=== PATIENT | female | born 1935 | race American Indian/Alaskan Native ===

== ENCOUNTER 2017-09-12 13:53 | Inpatient (IN) | payer MEDICARE ==
[2017-09-12 14:10] VITALS: BMI 28.3
[2017-09-12] MEDS ORDERED: Magnesium Sulfate 2 GM in Sodium Chloride 0.9% 100 ML IVPB ONE (14:11)
[2017-09-12] MEDS ORDERED: Albuterol-Ipratrop 3 mg / 0.5 (3 ml) UD IH STA (14:11)
[2017-09-12] MEDS ORDERED: Albuterol 0.083% Inhal Sol (2.5 mg/3 mL) UD INH STA (14:11)
--- NOTE | 2017-09-12 14:12 | ED PDOC ---
Arrival/HPI - General Time Seen by Provider: 09/12/17 14:01 Historian: Patient - History of Present Illness Narrative History of Present Illness (Text): 09/12/17 14:09 A 82 year old female, whose past medical history includes asthma, presents to the emergency department complaining of progressively worsening shortness of breath since yesterday. Patient notes associated productive cough with white- yellow sputum. She report using her inhaler at home, with no relief. Patient states her symptoms feel similar to prior asthma exacerbations. Patient denies any fever, chills, nausea, vomiting, abdominal pain, chest pain or any other complaints. Time/Duration: Other (yesterday) Symptom Course: Worsening Context: Home Past Medical History - Provider Review Nursing Documentation Reviewed: Yes Family/Social History - Physician Review Nursing Documentation Reviewed: Yes Family/Social History: No Known Family HX Allergies/Home Meds Allergies/Adverse Reactions: Allergies No Known Allergies Allergy (Verified 09/12/17 14:10) Home Medications: Home Meds Medication Instructions Recorded Confirmed Albuterol HFA [Ventolin HFA 90 0.09 mg IH PRN PRN 09/12/17 09/12/17 mcg/actuation (8 g)] Aspirin [Ecotrin] 81 mg PO DAILY 09/12/17 09/12/17 Pantoprazole [Protonix] 40 mg PO DAILY 09/12/17 09/12/17 amLODIPine [Norvasc] 10 mg PO DAILY 09/12/17 09/12/17 Review of Systems - Physician Review All systems were reviewed & negative as marked: Yes - Review of Systems Constitutional: absent: Fevers, Night Sweats Respiratory: SOB, Cough, Sputum Cardiovascular: absent: Chest Pain Gastrointestinal: absent: Abdominal Pain, Nausea, Vomiting Physical Exam Vital Signs Reviewed: Yes Vital Signs Temp Pulse Resp BP Pulse Ox 09/12/17 16:50 108 H 18 125/56 L 99 09/12/17 14:36 104 H 22 110/66 96 09/12/17 14:16 22 09/12/17 14:13 98.7 F 102 H 22 96/55 L 93 L Temperature: Afebrile Blood Pressure: Hypotensive Pulse: Tachycardic Respiratory Rate: Normal Appearance: Positive for: Well-Appearing, Non-Toxic, Comfortable Pain Distress: None Mental Status: Positive for: Alert and Oriented X 3 - Systems Exam Head: Present: Atraumatic, Normocephalic Pupils: Present: PERRL Extroacular Muscles: Present: EOMI Conjunctiva: Present: Normal Mouth: Present: Moist Mucous Membranes Neck: Present: Normal Range of Motion. No: JVD Respiratory/Chest: Present: Good Air Exchange, Wheezes (diffuse wheezing bilaterally). No: Respiratory Distress, Accessory Muscle Use Cardiovascular: Present: Regular Rate and Rhythm, Normal S1, S2. No: Murmurs Abdomen: Present: Normal Bowel Sounds. No: Tenderness, Distention, Peritoneal Signs Back: Present: Normal Inspection Upper Extremity: Present: Normal Inspection. No: Cyanosis, Edema Lower Extremity: Present: Normal Inspection. No: Edema Neurological: Present: GCS=15, CN II-XII Intact, Speech Normal Skin: Present: Warm, Dry, Normal Color. No: Rashes Psychiatric: Present: Alert, Oriented x 3, Normal Insight, Normal Concentration Medical Decision Making ED Course and Treatment: 09/12/17 14:09 Impression: A 82 year old female with shortness of breath and productive cough. Hx of asthma. Plan: -- Chest xray -- EKG -- Labs -- Albuterol, Duoneb, Magnesium sulfate and Solumedrol -- Reassess and disposition Progress Notes: EKG shows 104 at sinus tachycardia BPM with LAFB. Interpreted by me. 09/12/17 16:03 Patient given antibiotics. Spoke to Dr. Martinez, whom states patient to be admitted to med-surg floor. Diagnosis: Asthma vs. Pneumonia. - Lab Interpretations Lab Results: 09/12/17 14:39 09/12/17 14:39 Lab Results 09/12/17 15:20: PT 11.2, INR 0.98 09/12/17 14:39: Sodium 145, Potassium 4.1, Chloride 106, Carbon Dioxide 26, Anion Gap 17, BUN 11, Creatinine 0.7, Est GFR ( Amer) > 60, Est GFR (Non- Af Amer) > 60, Random Glucose 124 H, Calcium 10.1, Total Bilirubin 0.6, AST 32, ALT 29, Alkaline Phosphatase 73, Lactate Dehydrogenase 611, Total Creatine Kinase 77, Troponin I < 0.01, NT-Pro-B Natriuret Pep 171, Total Protein 7.9, Albumin 4.4, Globulin 3.5, Albumin/Globulin Ratio 1.3 09/12/17 14:39: WBC 10.1, RBC 4.11, Hgb 12.8, Hct 39.0, MCV 94.9, MCH 31.1, MCHC 32.8, RDW 13.1, Plt Count 282, MPV 9.9, Gran % 72.5 H, Lymph % (Auto) 15.4 L, [place] % (Auto) 8.5 H, Eos % (Auto) 3.4, Baso % (Auto) 0.2, Gran # 7.29 H, Lymph # (Auto) 1.6, [place] # (Auto) 0.9 H, Eos # (Auto) 0.3, Baso # (Auto) 0.02 I have reviewed the lab results: Yes - RAD Interpretation Radiology Orders: 09/12/17 14:12 CXR [CHEST PORTABLE] [RAD] Stat - Medication Orders Current Medication Orders: Discontinued Medications Acetaminophen (Tylenol 325mg Tab) 650 mg PO Q6H PRN PRN Reason: Fever >100.4 F Albuterol Sulfate (Albuterol 0.083% Inhal Bev (2.5 Mg/3 Ml) Ud) 5 mg INH STAT STA Stop: 09/12/17 14:12 Last Admin: 09/12/17 14:44 Dose: 5 mg Albuterol Sulfate (Albuterol 0.083% Inhal Bev (2.5 Mg/3 Ml) Ud) 2.5 mg IH Q2H PRN PRN Reason: Shortness of Breath Albuterol/Ipratropium (Duoneb 3 Mg/0.5 Mg (3 Ml) Ud) 3 ml IH STAT STA Stop: 09/12/17 14:12 Last Admin: 09/12/17 14:15 Dose: 3 ml Albuterol/Ipratropium (Duoneb 3 Mg/0.5 Mg (3 Ml) Ud) 3 ml IH [id number] ANCA Last Admin: 09/13/17 13:19 Dose: Amlodipine Besylate (Norvasc) 10 mg PO DAILY ON LICENSE OF [facility] Last Admin: 09/13/17 09:54 Dose: 10 mg MAR Blood Pressure Document 09/13/17 09:54 SES (Rec: 09/13/17 09:59 SES [id number]) Blood Pressure Blood Pressure (100/60-150/90) 128/70 Aspirin (Ecotrin) 81 mg PO DAILY ANCA Last Admin: 09/13/17 09:54 Dose: 81 mg Azithromycin (Zithromax) 500 mg PO DAILY ANCA PRN Reason: Protocol Last Admin: 09/13/17 09:54 Dose: 500 mg Famotidine (Pepcid) 20 mg PO BID ANCA Last Admin: 09/13/17 09:54 Dose: 20 mg Magnesium Sulfate 2 gm/ Sodium (Chloride) 104 mls @ 102 mls/hr IVPB ONCE ONE Stop: 09/12/17 15:12 Last Admin: 09/12/17 14:43 Dose: 102 mls/hr eMAR Start Stop Document 09/12/17 14:43 CATHY (Rec: 09/12/17 14:43 CATHY [id number]) Intravenous Solution Start Date 09/12/17 Start Time 14:43 End Date 09/12/17 End time 13:43 Total Infusion Time -60 Ceftriaxone Sodium (Rocephin 1 Gram Ivpb) 1 gm in 100 mls @ 200 mls/hr IVPB STAT STA PRN Reason: Protocol Stop: 09/12/17 15:33 Last Admin: 09/12/17 15:42 Dose: 200 mls/hr eMAR Start Stop Document 09/12/17 15:42 MS (Rec: 09/12/17 15:46 MS [id number]) Intravenous Solution Start Date 09/12/17 Start Time 15:46 End Date 09/12/17 End time 16:16 Total Infusion Time 30 Azithromycin (Zithromax 500mg In Ns) 500 mg in 250 mls @ 167 mls/hr IVPB STAT STA PRN Reason: Protocol Stop: 09/12/17 16:33 Last Admin: 09/12/17 16:43 Dose: 167 mls/hr eMAR Start Stop Document 09/12/17 16:43 MS (Rec: 09/12/17 16:46 MS [id number]) Intravenous Solution Start Date 09/12/17 Start Time 16:46 End Date 09/12/17 End time 18:16 Total Infusion Time 90 Methylprednisolone (Solu-Medrol) 125 mg IVP STAT STA Stop: 09/12/17 14:12 Last Admin: 09/12/17 14:43 Dose: 125 mg IVP Administration Document 09/12/17 14:43 CATHY (Rec: 09/12/17 14:43 CATHY [id number]) Charges for Administration # of IVP Administrations 1 Methylprednisolone (Solu-Medrol) 40 mg IVP Q12 ANCA Last Admin: 09/13/17 11:23 Dose: Oxycodone/Acetaminophen (Percocet 5/325 Mg Tab) 1 tab PO Q6H PRN PRN Reason: Pain, severe (8-10) Stop: 09/15/17 16:58 - Scribe Statement The provider has reviewed the documentation as recorded by the Ashleeibcolby Lentz Provider Scribe Attestation: All medical record entries made by the Scribe were at my direction and personally dictated by me. I have reviewed the chart and agree that the record accurately reflects my personal performance of the history, physical exam, medical decision making, and the department course for this patient. I have also personally directed, reviewed, and agree with the discharge instructions and disposition. Disposition/Present on Arrival - Present on Arrival Any Indicators Present on Arrival: No History of DVT/PE: No History of Uncontrolled Diabetes: No Urinary Catheter: No History of Decub. Ulcer: No History Surgical Site Infection Following: None - Disposition Have Diagnosis and Disposition been Completed?: Yes Diagnosis: Exacerbation of asthma, Community acquired pneumonia Disposition: HOME/ ROUTINE Disposition Time: 16:05 Patient Plan: Admission Condition: GOOD
[2017-09-12 14:55] LABS: BASO # 0.02 K/mm3 (0.0-2.0); BASO % 0.2 % (0.0-3.0); EOS # 0.3 (0.0-0.7); EOS % 3.4 % (1.5-5.0); GRAN # 7.29 (1.4-6.5); GRAN % 72.5 % (50.0-68.0); HEMOGLOBIN 12.8 g/dL (12.0-16.0); LYMPH # 1.6 (1.2-3.4); LYMPH % 15.4 % (22.0-35.0); MEAN CELL VOLUME 94.9 fl (80.0-105.0); MEAN CORPUSCULAR HEMOGLOBIN 31.1 pg (25.0-35.0); MEAN CORPUSCULAR HGB CONC 32.8 g/dl (31.0-37.0); MEAN PLATELET VOLUME 9.9 fl (7.0-11.0); MONO # 0.9 (0.1-0.6); MONO % 8.5 % (1.0-6.0); RBC 4.11 10^6/uL (3.5-6.1); RED CELL DISTRIBUTION WIDTH 13.1 % (11.5-14.5); WHITE BLOOD COUNT 10.1 10^3/ul (4.5-11.0)
[2017-09-12] MEDS ORDERED: Azithromycin 500MG/NS 250ml 500 MG/250 ML BAG IVPB STA (15:04)
[2017-09-12] MEDS ORDERED: cefTRIAXone 1 gm 1 GM/100 ML BAG IVPB STA (15:04)
[2017-09-12 15:06] LABS: ALB/GLOB RATIO 1.3 (1.1-1.8); ALBUMIN 4.4 g/dL (3.0-4.8); ALT/SGPT 29 U/L (7-56); AST/SGOT 32 U/L (14-36); BLOOD UREA NITROGEN 11 mg/dL (7-21); CALCIUM 10.1 mg/dL (8.4-10.5); GFR AFRICAN-AMERICAN > 60; GFR NON-AFRICAN AMERICAN > 60
--- NOTE | 2017-09-12 15:06 | RAD ---
HISTORY: Wheezing COMPARISON: No prior. FINDINGS: LUNGS: The lungs are well inflated and clear. PLEURA: No significant pleural effusion identified, no pneumothorax apparent. CARDIOVASCULAR: The heart is normal in size. There is asymmetric prominence the right hilum. OSSEOUS STRUCTURES: No significant abnormalities. VISUALIZED UPPER ABDOMEN: Normal. OTHER FINDINGS: None. IMPRESSION: No active pulmonary disease. Asymmetric prominence of the right hilum could be vascular however CT scan with intravenous contrast on a nonemergent basis is recommended for definitive evaluation.
[2017-09-12 15:18] LABS: B-TYPE NATRIURETIC PEPTIDE 171 pg/mL (0-450); TROPONIN I < 0.01 ng/mL
[2017-09-12 15:38] LABS: INR 0.98 (0.93-1.08); PROTHROMBIN TIME 11.2 SECONDS (9.4-12.5)
[2017-09-12] MEDS ORDERED: Albuterol 0.083% Inhal Sol (2.5 mg/3 mL) UD IH PRN (16:28)
[2017-09-12] MEDS ORDERED: Sodium Chloride 0.9% 1,000 ML IV SCH (16:30)
--- NOTE | 2017-09-12 16:32 | CP.PCM.HP ---
<Edna Burr - Last Filed: 09/12/17 17:13> History of Present Illness - History of Present Illness History of Present Illness: This is an 82yo female with past medical history of HTN, OA (on chronic opiates) , Asthma and GERD who came to ED for shortness of breath. Patient reports having a cough for 1 week with clear sputum. She started to feel short of breath. She was using her Ventolin inhaler without any relief. She denies fever/ chills, chest pain, weakness, recent travel, sick contacts, allergies (to pets/ dust or seasonal) that exacerbates her asthma. She has never been intubated before and she never wakes up at night feeling short of breath. She states she can walk a long time without getting short of breath. She uses her Ventolin once a week. According to her pharmacy, she picked up a medrol dose pack on 08/28. Patient says her PMD, Dr. Mayorga, gives it to her when she feels short of breath. She has never seen a Pulm doctor. She has only been hospitalized for her 2 surgeries which were >20yrs ago. PMH: HTN, OA, Asthma, GERD PSH: Appendectomy, Hysterectomy Home meds: (Confirmed with [facility] on [address]) ASA 81mg, Norvasc 10mg, Protonix 40mg daily, [place] 7.5/325mg q6h prn pain, Ventolin inhaler, Duoneb as needed Allergies: NKDA Social history: Denies EtOH, illicit drug or any tobacco use. Lives alone, but in 2 family home with family near by. Takes care of herself, but does not drive. PMD: Dr. Mayorga Present on Admission - Present on Admission Any Indicators Present on Admission: No Review of Systems - Review of Systems All systems: reviewed and no additional remarkable complaints except Review of Systems: As per HPI Past Patient History - Infectious Disease Hx of Infectious Diseases: None - Past Social History Smoking Status: Never Smoked Alcohol: None Drugs: Denies Home Situation {Lives}: Alone - CARDIAC Hx Hypertension: Yes - PULMONARY Hx Asthma: Yes - NEUROLOGICAL Hx Neurological Disorder: No - RENAL Hx Chronic Kidney Disease: No - ENDOCRINE/METABOLIC Hx Endocrine Disorders: No - GENITOURINARY/GYNECOLOGICAL Hx Genitourinary Disorders: No - PSYCHIATRIC Hx Psychophysiologic Disorder: No Hx Substance Use: No - SURGICAL HISTORY Hx Surgeries: No - ANESTHESIA Hx Anesthesia: No Meds Home Medications: Home Medication List Medication Instructions Recorded Confirmed Type Azithromycin 1 gm PO DAILY 5 Days packet 09/13/17 Rx Methylprednisolone [Medrol Dose See Taper PO DAILY #21 mg 09/13/17 Rx Pack (21 tabs)] Allergies/Adverse Reactions: Allergies Allergy/AdvReac Type Severity Reaction Status Date / Time No Known Allergies Allergy Verified 09/12/17 14:10 Physical Exam - Constitutional Appears: No Acute Distress - Head Exam Head Exam: ATRAUMATIC, NORMAL INSPECTION, NORMOCEPHALIC - Eye Exam Eye Exam: EOMI, Normal appearance, PERRL Pupil Exam: NORMAL ACCOMODATION - ENT Exam ENT Exam: Mucous Membranes Moist - Respiratory Exam Respiratory Exam: Wheezes (diffuse), NORMAL BREATHING PATTERN. absent: Rales, Rhonchi - Cardiovascular Exam Cardiovascular Exam: REGULAR RHYTHM, +S1, +S2. absent: Tachycardia, Gallop, Rubs, Systolic Murmur - GI/Abdominal Exam GI & Abdominal Exam: Normal Bowel Sounds, Soft. absent: Mass, Rebound, Rigid, Tenderness - Extremities Exam Extremities exam: Positive for: normal inspection. Negative for: calf tenderness, pedal edema - Neurological Exam Neurological exam: Alert, CN II-XII Intact, Oriented x3 - Psychiatric Exam Psychiatric exam: Normal Affect, Normal Mood - Skin Skin Exam: Dry, Intact, Warm Results - Vital Signs Recent Vital Signs: Last Vital Signs Temp 98.7 F 09/12/17 14:13 Pulse 104 H 09/12/17 14:36 Resp 22 09/12/17 14:36 BP 110/66 09/12/17 14:36 Pulse Ox 96 09/12/17 14:36 - Labs Result Diagrams: 09/12/17 14:39 09/12/17 14:39 Labs: Laboratory Results - last 24 hr 09/12/17 09/12/17 09/12/17 14:39 14:39 15:20 WBC 10.1 RBC 4.11 Hgb 12.8 Hct 39.0 MCV 94.9 MCH 31.1 MCHC 32.8 RDW 13.1 Plt Count 282 MPV 9.9 Gran % 72.5 H Lymph % (Auto) 15.4 L [place] % (Auto) 8.5 H Eos % (Auto) 3.4 Baso % (Auto) 0.2 Gran # 7.29 H Lymph # (Auto) 1.6 [place] # (Auto) 0.9 H Eos # (Auto) 0.3 Baso # (Auto) 0.02 PT 11.2 INR 0.98 Sodium 145 Potassium 4.1 Chloride 106 Carbon Dioxide 26 Anion Gap 17 BUN 11 Creatinine 0.7 Est GFR ( Amer) > 60 Est GFR (Non-Af Amer) > 60 Random Glucose 124 H Calcium 10.1 Total Bilirubin 0.6 AST 32 ALT 29 Alkaline Phosphatase 73 Lactate Dehydrogenase 611 Total Creatine Kinase 77 Troponin I < 0.01 NT-Pro-B Natriuret Pep 171 Total Protein 7.9 Albumin 4.4 Globulin 3.5 Albumin/Globulin Ratio 1.3 Assessment & Plan - Assessment and Plan (Free Text) Assessment: This is an 82yo female with past medical history of HTN, OA (on chronic opiates) , Asthma and GERD admitted for asthma exacerbation. Plan: 1. Shortness of breath - Most likely secondary to asthma exacerbation - Pneumonia is unlikely- afebrile, no leukocytosis, CXR negative. - Solumedrol 40q12 - Duoneb mk and prn - Tylenol prn fever - Zithromax 2. Hx of HTN - Continue home ASA and Norvasc 3. Hx of Arthritis - On chronic opiates at home - Percocet 5/325 prn severe pain GI ppx: Pepcid DVT ppx: SCDs Dispo: Patient is independent in all ADLs. If wheezing improves can possibly be d/c tomorrow with Z-pack and Prednisone taper. Patient educated on the use of chronic steroids and the risk of osteoporosis. Consider changed home prescription of protonix to pepcid tp decrease risk of osteoporosisVirginia Burr PGY2 - Date & Time Date: 09/12/17 Time: 17:25 <Misty Wise - Last Filed: 09/13/17 17:30> Results - Vital Signs Recent Vital Signs: Last Vital Signs Temp 97.9 F 09/13/17 08:06 Pulse 91 H 09/13/17 08:06 Resp 18 09/13/17 08:06 BP 128/70 09/13/17 09:54 Pulse Ox 98 09/13/17 08:06 - Labs Result Diagrams: 09/13/17 06:40 09/13/17 06:40 Labs: Laboratory Results - last 24 hr 09/13/17 09/13/17 06:40 06:40 WBC 7.5 D RBC 4.06 Hgb 12.2 Hct 38.3 MCV 94.3 MCH 30.0 MCHC 31.9 RDW 13.1 Plt Count 309 MPV 9.8 Gran % 83.8 H Lymph % (Auto) 11.5 L [place] % (Auto) 4.7 Eos % (Auto) 0.0 L Baso % (Auto) 0.0 Gran # 6.28 Lymph # (Auto) 0.9 L [place] # (Auto) 0.4 Eos # (Auto) 0.0 Baso # (Auto) 0.00 Sodium 146 Potassium 4.5 Chloride 107 Carbon Dioxide 29 Anion Gap 14 BUN 11 Creatinine 0.7 Est GFR ( Amer) > 60 Est GFR (Non-Af Amer) > 60 Random Glucose 134 H Calcium 10.3 Total Bilirubin 0.4 AST 25 ALT 28 Alkaline Phosphatase 69 Total Protein 7.5 Albumin 4.1 Globulin 3.4 Albumin/Globulin Ratio 1.2 Attending/Attestation - Attestation I have personally seen and examined this patient.: Yes I have fully participated in the care of the patient.: Yes I have reviewed all pertinent clinical information: Yes Notes (Text): I have seen and examined the patient at bedside. Agree with the above note with the following additions/ exceptions: Briefly this is 82 year old female with history of HTN, OA, asthma and GERD who was admitted for asthma exacerbation. Start IV solumedrol and duonebs. CXR negative. Patient was able to do ADL's and IADL's on her own without assistance. Upon discharge patient will follow up with Dr Mayorga. Dr Misty Wise
[2017-09-12] MEDS ORDERED: Oxycodone/Acetaminophen 5/325 mg Tab PO PRN (16:57)
[2017-09-12] MEDS: MethylPREDNISolone 40 mg Vial IVP SCH (21:46)
[2017-09-12] MEDS: Albuterol-Ipratrop 3 mg / 0.5 (3 ml) UD IH SCH (22:24)
[2017-09-13 07:01] LABS: GRAN # 6.28 (1.4-6.5); GRAN % 83.8 % (50.0-68.0); HEMOGLOBIN 12.2 g/dL (12.0-16.0); LYMPH # 0.9 (1.2-3.4); LYMPH % 11.5 % (22.0-35.0); MEAN CELL VOLUME 94.3 fl (80.0-105.0); MEAN CORPUSCULAR HGB CONC 31.9 g/dl (31.0-37.0); MEAN PLATELET VOLUME 9.8 fl (7.0-11.0); MONO # 0.4 (0.1-0.6); MONO % 4.7 % (1.0-6.0); RBC 4.06 10^6/uL (3.5-6.1); RED CELL DISTRIBUTION WIDTH 13.1 % (11.5-14.5); WHITE BLOOD COUNT 7.5 10^3/ul (4.5-11.0)
[2017-09-13 07:18] LABS: ALB/GLOB RATIO 1.2 (1.1-1.8); ALBUMIN 4.1 g/dL (3.0-4.8); ALT/SGPT 28 U/L (7-56); AST/SGOT 25 U/L (14-36); BLOOD UREA NITROGEN 11 mg/dL (7-21); CALCIUM 10.3 mg/dL (8.4-10.5); GFR AFRICAN-AMERICAN > 60; GFR NON-AFRICAN AMERICAN > 60
--- NOTE | 2017-09-13 07:32 | CARD ---
APPROVED REPORT EKG Measurement Heart [id number] <Conclusion> Sinus tachycardia with fusion complexes Left anterior fascicular block Abnormal ECG
[2017-09-13] MEDS: Albuterol-Ipratrop 3 mg / 0.5 (3 ml) UD IH SCH ×2 (07:43→13:19)
[2017-09-13 08:07] VITALS: PULSE 91; RESP 18; TEMP 97.9; O2SAT 98
[2017-09-13] MEDS: MethylPREDNISolone 40 mg Vial IVP SCH ×2 (09:54→11:23)
[2017-09-13 09:59] VITALS: BP 128/70
--- NOTE | 2017-09-13 12:27 | CP.PCM.DIS ---
<Bobo Rosales - Last Filed: 09/13/17 12:36> Provider - Provider Date of Admission: 09/12/17 16:05 Attending physician: Misty Wise MD Primary care physician: Rafat Mayorga MD Time Spent in preparation of Discharge (in minutes): 45 Diagnosis - Discharge Diagnosis (1) Exacerbation of asthma Status: Resolved Priority: Medium (2) Hypertension Status: Chronic Priority: Medium (3) Osteoarthritis Status: Chronic Priority: Medium Hospital Course - Lab Results Lab Results: Most Recent Lab Values WBC 7.5 10^3/ul (4.5-11.0) D 09/13/17 06:40 RBC 4.06 10^6/uL (3.5-6.1) 09/13/17 06:40 Hgb 12.2 g/dL (12.0-16.0) 09/13/17 06:40 Hct 38.3 % (36.0-48.0) 09/13/17 06:40 MCV 94.3 fl (80.0-105.0) 09/13/17 06:40 MCH 30.0 pg (25.0-35.0) 09/13/17 06:40 MCHC 31.9 g/dl (31.0-37.0) 09/13/17 06:40 RDW 13.1 % (11.5-14.5) 09/13/17 06:40 Plt Count 309 10^3/uL (120.0-450.0) 09/13/17 06:40 MPV 9.8 fl (7.0-11.0) 09/13/17 06:40 Gran % 83.8 % (50.0-68.0) H 09/13/17 06:40 Lymph % (Auto) 11.5 % (22.0-35.0) L 09/13/17 06:40 [place] % (Auto) 4.7 % (1.0-6.0) 09/13/17 06:40 Eos % (Auto) 0.0 % (1.5-5.0) L 09/13/17 06:40 Baso % (Auto) 0.0 % (0.0-3.0) 09/13/17 06:40 Gran # 6.28 (1.4-6.5) 09/13/17 06:40 Lymph # (Auto) 0.9 (1.2-3.4) L 09/13/17 06:40 [place] # (Auto) 0.4 (0.1-0.6) 09/13/17 06:40 Eos # (Auto) 0.0 (0.0-0.7) 09/13/17 06:40 Baso # (Auto) 0.00 K/mm3 (0.0-2.0) 09/13/17 06:40 PT 11.2 SECONDS (9.4-12.5) 09/12/17 15:20 INR 0.98 (0.93-1.08) 09/12/17 15:20 Sodium 146 mmol/L (132-148) 09/13/17 06:40 Potassium 4.5 mmol/L (3.6-5.0) 09/13/17 06:40 Chloride 107 mmol/L (98-107) 09/13/17 06:40 Carbon Dioxide 29 mmol/L (21-33) 09/13/17 06:40 Anion Gap 14 (10-20) 09/13/17 06:40 BUN 11 mg/dL (7-21) 09/13/17 06:40 Creatinine 0.7 mg/dl (0.7-1.2) 09/13/17 06:40 Est GFR ( Amer) > 60 09/13/17 06:40 Est GFR (Non-Af Amer) > 60 09/13/17 06:40 Random Glucose 134 mg/dL (70-110) H 09/13/17 06:40 Calcium 10.3 mg/dL (8.4-10.5) 09/13/17 06:40 Total Bilirubin 0.4 mg/dL (0.2-1.3) 09/13/17 06:40 AST 25 U/L (14-36) 09/13/17 06:40 ALT 28 U/L (7-56) 09/13/17 06:40 Alkaline Phosphatase 69 U/L (38-126) 09/13/17 06:40 Lactate Dehydrogenase 611 U/L (333-699) 09/12/17 14:39 Total Creatine Kinase 77 U/L (35-230) 09/12/17 14:39 Troponin I < 0.01 ng/mL 09/12/17 14:39 NT-Pro-B Natriuret Pep 171 pg/mL (0-450) 09/12/17 14:39 Total Protein 7.5 g/dL (5.8-8.3) 09/13/17 06:40 Albumin 4.1 g/dL (3.0-4.8) 09/13/17 06:40 Globulin 3.4 gm/dL 09/13/17 06:40 Albumin/Globulin Ratio 1.2 (1.1-1.8) 09/13/17 06:40 - Hospital Course Hospital Course: Patient is a 82 year old female with past medical history of HTN, OA (on chronic opiates), Asthma and GERD who was admitted for evaluation and treatment of shortness of breath. With the use of physical examinations, lab work, and imaging the patient was diagnosed with and treated for asthma exacerbation along with the patients chronic medical conditions. During their hospital stay the patient underwent a chest xray which was reviewed, appreciated, and utilized in the management of the patients clinical course. CXR showed no active disease. Patient was treated with IV steriods, duonebs, antihypertensive medications amongst other empiric/therapeutic medications. At this time the patient is medically stable for discharge. Patient understands and appreciates discharge plan. Patient instructed to follow up with primary care physicians and referrals within three to five days from discharge. Furthermore, the patient is instructed to take medications as prescribed and to return to emergency room for evaluation of intractable headache, fever, chills, dizziness , chest pain, shortness of breath, abdominal pain, nausea, vomiting, diarrhea, constipation, and urinary symptoms. This is a brief summary of the patients hospital course. Please see patient chart for full details. Discharge Exam - Head Exam Head Exam: ATRAUMATIC, NORMAL INSPECTION, NORMOCEPHALIC - Additional Findings Additional findings: - Constitutional Appears: No Acute Distress - Head Exam Head Exam: ATRAUMATIC, NORMAL INSPECTION, NORMOCEPHALIC - Eye Exam Eye Exam: EOMI, Normal appearance, PERRL - ENT Exam ENT Exam: Mucous Membranes Moist - Respiratory Exam Respiratory Exam: NORMAL BREATHING PATTERN. absent: Rales, Rhonchi - Cardiovascular Exam Cardiovascular Exam: REGULAR RHYTHM, +S1, +S2. absent: Tachycardia, Gallop, Rubs, Systolic Murmur - GI/Abdominal Exam GI & Abdominal Exam: Normal Bowel Sounds, Soft. absent: Mass, Rebound, Rigid, Tenderness - Extremities Exam Extremities exam: Positive for: normal inspection. Negative for: calf tenderness, pedal edema - Neurological Exam Neurological exam: Alert, CN II-XII Intact, Oriented x3 - Psychiatric Exam Psychiatric exam: Normal Affect, Normal Mood - Skin Skin Exam: Dry, Intact, Warm Discharge Plan - Discharge Medications Prescriptions: Azithromycin 1 gm PO DAILY 5 Days packet Methylprednisolone [Medrol Dose Pack (21 tabs)] See Taper PO DAILY #21 mg - Follow Up Plan Condition: GOOD Disposition: HOME/ ROUTINE Patient education suggested?: Yes Instructions: Asthma in Adults, Heart Healthy Diet, High Blood Pressure (DC), Preventing Falls Additional Instructions: Patient Instructions: Take medications as prescribed. Follow up with PMD and referrals within three to five days from discharge. Recommend noncontrast CT of Chest on outpatient basis. Return to the emergency room for evaluation of intractable headache, fever, chills, dizziness, chest pain, shortness of breath, abdominal pain, nausea, vomiting, diarrhea, constipation, and urinary symptoms. Referrals: Rafat Mayorga MD [Primary Care Provider] - <Misty Wise - Last Filed: 09/13/17 17:35> Provider - Provider Date of Admission: 09/12/17 16:05 Attending physician: Misty Wise MD Primary care physician: Rafat Mayorga MD Hospital Course - Lab Results Lab Results: Most Recent Lab Values WBC 7.5 10^3/ul (4.5-11.0) D 09/13/17 06:40 RBC 4.06 10^6/uL (3.5-6.1) 09/13/17 06:40 Hgb 12.2 g/dL (12.0-16.0) 09/13/17 06:40 Hct 38.3 % (36.0-48.0) 09/13/17 06:40 MCV 94.3 fl (80.0-105.0) 09/13/17 06:40 MCH 30.0 pg (25.0-35.0) 09/13/17 06:40 MCHC 31.9 g/dl (31.0-37.0) 09/13/17 06:40 RDW 13.1 % (11.5-14.5) 09/13/17 06:40 Plt Count 309 10^3/uL (120.0-450.0) 09/13/17 06:40 MPV 9.8 fl (7.0-11.0) 09/13/17 06:40 Gran % 83.8 % (50.0-68.0) H 09/13/17 06:40 Lymph % (Auto) 11.5 % (22.0-35.0) L 09/13/17 06:40 [place] % (Auto) 4.7 % (1.0-6.0) 09/13/17 06:40 Eos % (Auto) 0.0 % (1.5-5.0) L 09/13/17 06:40 Baso % (Auto) 0.0 % (0.0-3.0) 09/13/17 06:40 Gran # 6.28 (1.4-6.5) 09/13/17 06:40 Lymph # (Auto) 0.9 (1.2-3.4) L 09/13/17 06:40 [place] # (Auto) 0.4 (0.1-0.6) 09/13/17 06:40 Eos # (Auto) 0.0 (0.0-0.7) 09/13/17 06:40 Baso # (Auto) 0.00 K/mm3 (0.0-2.0) 09/13/17 06:40 PT 11.2 SECONDS (9.4-12.5) 09/12/17 15:20 INR 0.98 (0.93-1.08) 09/12/17 15:20 Sodium 146 mmol/L (132-148) 09/13/17 06:40 Potassium 4.5 mmol/L (3.6-5.0) 09/13/17 06:40 Chloride 107 mmol/L (98-107) 09/13/17 06:40 Carbon Dioxide 29 mmol/L (21-33) 09/13/17 06:40 Anion Gap 14 (10-20) 09/13/17 06:40 BUN 11 mg/dL (7-21) 09/13/17 06:40 Creatinine 0.7 mg/dl (0.7-1.2) 09/13/17 06:40 Est GFR ( Amer) > 60 09/13/17 06:40 Est GFR (Non-Af Amer) > 60 09/13/17 06:40 Random Glucose 134 mg/dL (70-110) H 09/13/17 06:40 Calcium 10.3 mg/dL (8.4-10.5) 09/13/17 06:40 Total Bilirubin 0.4 mg/dL (0.2-1.3) 09/13/17 06:40 AST 25 U/L (14-36) 09/13/17 06:40 ALT 28 U/L (7-56) 09/13/17 06:40 Alkaline Phosphatase 69 U/L (38-126) 09/13/17 06:40 Lactate Dehydrogenase 611 U/L (333-699) 09/12/17 14:39 Total Creatine Kinase 77 U/L (35-230) 09/12/17 14:39 Troponin I < 0.01 ng/mL 09/12/17 14:39 NT-Pro-B Natriuret Pep 171 pg/mL (0-450) 09/12/17 14:39 Total Protein 7.5 g/dL (5.8-8.3) 09/13/17 06:40 Albumin 4.1 g/dL (3.0-4.8) 09/13/17 06:40 Globulin 3.4 gm/dL 09/13/17 06:40 Albumin/Globulin Ratio 1.2 (1.1-1.8) 09/13/17 06:40 Attending/Attestation - Attestation I have personally seen and examined this patient.: Yes I have fully participated in the care of the patient.: Yes I have reviewed all pertinent clinical information, including history, physical exam and plan: Yes Notes (Text): I have seen and examined the patient at bedside. Agree with the above note. Labs , vitals and imaging reviewed by me. Patient was able to do ADL's and IADL's on her own without assistance. Patient will be sent home on [employer] dose pack. Upon discharge patient will follow up with Dr Mayorga. Dr Misty Wise
== END 2017-09-13 14:54 | disposition home or self-care (01) | DRG 203 ==
LOC: ED 13:53 → ERH 16:05 → 5RSO 20:04
PROVIDERS: ADMIT Internal Medicine; ATTEND Hospitalist
PROC: 3E0F7GC Introduction of Other Therapeutic Substance into Respiratory Tract, Via Natural or Artificial Opening (ICD-10-PCS; principal; 2017-09-13)
DX: J45.901 Unspecified asthma with (acute) exacerbation (principal); I10 Essential (primary) hypertension; K21.9 Gastro-esophageal reflux disease without esophagitis; M19.90 Unspecified osteoarthritis, unspecified site; Z79.891 Long term (current) use of opiate analgesic; Z90.710 Acquired absence of both cervix and uterus; Z79.82 Long term (current) use of aspirin

== ENCOUNTER 2017-11-11 19:30 | Observation (INO) | payer MEDICARE ==
[2017-11-11 19:40] VITALS: BMI 27.0
--- NOTE | 2017-11-11 20:12 | ED PDOC ---
Arrival/HPI - General Chief Complaint: Shortness Of Breath Time Seen by Provider: 11/11/17 19:58 Historian: Patient - History of Present Illness Narrative History of Present Illness (Text): 11/11/17 20:10 82 year old female, whose history includes asthma, presents to the Emergency department complaining of shortness of breath. Patient reports her symptoms are consistent with prior asthma exacerbations; she is unsure of what triggered this episode. Patient also complains of productive cough with clear sputum. Patient denies any fever, chills, chest pain, nausea, vomiting, diarrhea, urinary symptoms, back pain, neck pain, headache, dizziness, or any other complaints. Time/Duration: 4-6 hours Symptom Onset: Sudden Symptom Course: Unchanged Context: Home Past Medical History - Provider Review Nursing Documentation Reviewed: Yes - Infectious Disease Hx of Infectious Diseases: None - Cardiac Hx Hypertension: Yes - Pulmonary Hx Asthma: Yes Hx Chronic Obstructive Pulmonary Disease (COPD): Yes - Neurological Hx Neurological Disorder: No - Renal Hx Renal Disorder: No - Endocrine/Metabolic Hx Endocrine Disorders: No - Musculoskeletal/Rheumatological Hx Falls: No - Genitourinary/Gynecological Hx Genitourinary Disorders: No - Psychiatric Hx Psychophysiologic Disorder: No Hx Substance Use: No - Surgical History Hx Appendectomy: Yes Hx Hysterectomy: Yes - Anesthesia Hx Anesthesia: Yes Family/Social History - Physician Review Nursing Documentation Reviewed: Yes Family/Social History: Unknown Family HX Smoking Status: Never Smoked Hx Alcohol Use: No Hx Substance Use: No Allergies/Home Meds Allergies/Adverse Reactions: Allergies No Known Allergies Allergy (Verified 11/11/17 20:00) Home Medications: Home Meds Medication Instructions Recorded Confirmed Albuterol HFA [Ventolin HFA 90 0.09 mg IH PRN PRN 09/12/17 09/12/17 mcg/actuation (8 g)] Aspirin [Ecotrin] 81 mg PO DAILY 09/12/17 09/12/17 Pantoprazole [Protonix] 40 mg PO DAILY 09/12/17 09/12/17 amLODIPine [Norvasc] 10 mg PO DAILY 09/12/17 09/12/17 Review of Systems - Review of Systems Constitutional: absent: Fevers, Night Sweats ENT: absent: Rhinorrhea Respiratory: SOB, Cough (productive), Sputum (clear) Cardiovascular: absent: Chest Pain Gastrointestinal: absent: Diarrhea, Nausea, Vomiting Genitourinary Female: absent: Dysuria Musculoskeletal: absent: Back Pain, Neck Pain Skin: absent: Rash Neurological: absent: Headache, Dizziness Endocrine: absent: Diaphoresis Physical Exam Vital Signs Reviewed: Yes Vital Signs Pulse Resp BP Pulse Ox 11/11/17 19:58 121/78 11/11/17 19:40 100 H 26 H 100 Temperature: Afebrile Blood Pressure: Normal Pulse: Tachycardic Respiratory Rate: Tachypneic Appearance: Positive for: Well-Appearing, Non-Toxic, Comfortable Pain Distress: None Mental Status: Positive for: Alert and Oriented X 3 - Systems Exam Head: Present: Atraumatic, Normocephalic Pupils: Present: PERRL Extroacular Muscles: Present: EOMI Conjunctiva: Present: Normal Mouth: Present: Moist Mucous Membranes Neck: Present: Normal Range of Motion Respiratory/Chest: Present: Wheezes, Rhonchi Cardiovascular: Present: Regular Rate and Rhythm, Normal S1, S2. No: Murmurs Abdomen: No: Tenderness, Distention, Peritoneal Signs Back: Present: Normal Inspection Upper Extremity: Present: Normal Inspection. No: Cyanosis, Edema Lower Extremity: Present: Normal Inspection. No: Edema Neurological: Present: GCS=15, CN II-XII Intact, Speech Normal Skin: Present: Warm, Dry, Normal Color. No: Rashes Psychiatric: Present: Alert, Oriented x 3, Normal Insight, Normal Concentration Medical Decision Making ED Course and Treatment: 11/11/17 20:14 Impression: 82 year old female presents to the Emergency department complaining of shortness of breath consistent with prior asthmatic episodes. Differential Diagnosis included but are not limited to: asthma exacerbation Plan: -- Chest xray -- Labs -- Duoneb, Prednisone -- Reassess and disposition Prior Visits: Notes and results from previous visits were reviewed. Patient was last seen in the emergency department on 09/12/17, was diagnosed with Exacerbation of asthma , Community acquired pneumonia, and was discharged home. Progress Notes: 11/11/17 21:09 Persistent wheezing after duonebs and steroids. Cxray negative for infiltrate. EKG unchanged. - Lab Interpretations Lab Results: 11/11/17 20:37 11/11/17 20:37 Lab Results 11/11/17 20:37: Sodium 142, Potassium 3.9, Chloride 106, Carbon Dioxide 23, Anion Gap 17, BUN 16, Creatinine 0.8, Est GFR ( Amer) > 60, Est GFR (Non- Af Amer) > 60, Random Glucose 160 H, Calcium 9.3, Total Bilirubin 0.4, AST 48 H D, ALT 45, Alkaline Phosphatase 72, Troponin I 0.07 D, NT-Pro-B Natriuret Pep Pending, Total Protein 7.6, Albumin 4.2, Globulin 3.4, Albumin/Globulin Ratio 1.2 11/11/17 20:37: WBC 9.1 D, RBC 4.00, Hgb 12.2, Hct 38.9, MCV 97.3 D, MCH 30.5 , MCHC 31.4, RDW 13.3, Plt Count 274, MPV 9.4, Gran % 60.3, Lymph % (Auto) 27.6 , [place] % (Auto) 7.6 H, Eos % (Auto) 4.1, Baso % (Auto) 0.4, Gran # 5.45, Lymph # (Auto) 2.5, [place] # (Auto) 0.7 H, Eos # (Auto) 0.4, Baso # (Auto) 0.04 - RAD Interpretation Radiology Orders: 11/11/17 20:05 CHEST PORTABLE [RAD] Stat - Medication Orders Current Medication Orders: Discontinued Medications Albuterol/Ipratropium (Duoneb 3 Mg/0.5 Mg (3 Ml) Ud) 3 ml IH Q15M ANCA Stop: 11/11/17 20:46 Last Admin: 11/11/17 21:08 Dose: 3 ml Prednisone (Prednisone Tab) 60 mg PO STAT ONE Stop: 11/11/17 20:05 Last Admin: 11/11/17 21:08 Dose: 60 mg - Scribe Statement The provider has reviewed the documentation as recorded by the Scribcolby Machado All medical record entries made by the Ashleeibcolby were at my direction and personally dictated by me. I have reviewed the chart and agree that the record accurately reflects my personal performance of the history, physical exam, medical decision making, and the department course for this patient. I have also personally directed, reviewed, and agree with the discharge instructions and disposition. Disposition/Present on Arrival - Present on Arrival Any Indicators Present on Arrival: No History of DVT/PE: No History of Uncontrolled Diabetes: No Urinary Catheter: No History of Decub. Ulcer: No History Surgical Site Infection Following: None - Disposition Have Diagnosis and Disposition been Completed?: Yes Diagnosis: Asthma exacerbation Disposition: HOSPITALIZED Disposition Time: 21:10 Patient Plan: Observation Condition: FAIR Referrals: Rafat Mayorga MD [Primary Care Provider] - Follow up with primary Forms: Dianping (Burmese)
[2017-11-11] MEDS: Albuterol-Ipratrop 3 mg / 0.5 (3 ml) UD IH SCH ×3 (20:15→21:08)
[2017-11-11 20:51] LABS: GRAN % 60.3 % (50.0-68.0); HEMOGLOBIN 12.2 g/dL (12.0-16.0); LYMPH % 27.6 % (22.0-35.0); MEAN CELL VOLUME 97.3 fl (80.0-105.0); MEAN CORPUSCULAR HEMOGLOBIN 30.5 pg (25.0-35.0); MEAN CORPUSCULAR HGB CONC 31.4 g/dl (31.0-37.0); MEAN PLATELET VOLUME 9.4 fl (7.0-11.0); MONO % 7.6 % (1.0-6.0); RED CELL DISTRIBUTION WIDTH 13.3 % (11.5-14.5); WHITE BLOOD COUNT 9.1 10^3/ul (4.5-11.0)
[2017-11-11 20:52] LABS: BASO # 0.04 K/mm3 (0.0-2.0); BASO % 0.4 % (0.0-3.0); EOS # 0.4 (0.0-0.7); EOS % 4.1 % (1.5-5.0); GRAN # 5.45 (1.4-6.5); LYMPH # 2.5 (1.2-3.4); MONO # 0.7 (0.1-0.6)
[2017-11-11 20:56] LABS: ALB/GLOB RATIO 1.2 (1.1-1.8); ALBUMIN 4.2 g/dL (3.0-4.8); ALT/SGPT 45 U/L (7-56); AST/SGOT 48 U/L (14-36); BLOOD UREA NITROGEN 16 mg/dL (7-21); CALCIUM 9.3 mg/dL (8.4-10.5); GFR AFRICAN-AMERICAN > 60; GFR NON-AFRICAN AMERICAN > 60
[2017-11-11 21:07] LABS: TROPONIN I 0.07 ng/mL
[2017-11-11] MEDS ORDERED: Albuterol-Ipratrop 3 mg / 0.5 (3 ml) UD IH STA (21:10)
[2017-11-11] MEDS ORDERED: Levalbuterol 1.25 MG/3 ML Inhal Soln UD IH PRN (22:10)
[2017-11-11 22:17] LABS: B-TYPE NATRIURETIC PEPTIDE 69.3 pg/mL (0-450)
--- NOTE | 2017-11-11 23:05 | CP.PCM.HP ---
<Demar Mccrary - Last Filed: 11/11/17 23:25> History of Present Illness - History of Present Illness History of Present Illness: PGY-1 H&P for Dr. Brock This is an 82 year old female with PMHx of Asthma and hypertension who presented for shortness of breath. This began last night and has not improved despite inhaler and nebulizer treatments. Patient states that she was also coughing and bringing up white sputum. Patient also admitted to wheezing. Patient denies fever, chills, chest pain, abdominal pain, dysuria. Patient denies any recent travel or sick contacts. Patient has never been intubated before. To the patient's knowledge, this is only her second asthma exacerbation this year. She normally takes her rescue inhaler very infrequently about once a month. PMHx: Asthma, HTN PSHx: Appendectomy and hysterectomy Allergies: NKDA Social: Denies tobacco, alcohol, drugs. Lives alone. Family History: Denies PMD: Dr. Mayorga Home meds: Ventolin inhaler, Amlodipine 10 mg daily Present on Admission - Present on Admission Any Indicators Present on Admission: No Review of Systems - Constitutional Constitutional: absent: Chills, Fever - EENT Eyes: absent: Change in Vision Ears: absent: Decreased Hearing Nose/Mouth/Throat: absent: Nasal Congestion - Cardiovascular Cardiovascular: absent: Chest Pain - Respiratory Respiratory: Cough (with white sputum), Dyspnea (improved), Wheezing (improved) - Gastrointestinal Gastrointestinal: absent: Abdominal Pain, Constipation, Diarrhea, Nausea, Vomiting - Genitourinary Genitourinary: absent: Dysuria - Musculoskeletal Musculoskeletal: absent: Back Pain - Integumentary Integumentary: absent: Rash - Neurological Neurological: absent: Dizziness, Weakness - Psychiatric Psychiatric: absent: Anxiety - Endocrine Endocrine: absent: Palpitations Past Patient History - Infectious Disease Hx of Infectious Diseases: None - Past Social History Smoking Status: Never Smoked - CARDIAC Hx Hypertension: Yes - PULMONARY Hx Asthma: Yes Hx Chronic Obstructive Pulmonary Disease (COPD): Yes - NEUROLOGICAL Hx Neurological Disorder: No - RENAL Hx Chronic Kidney Disease: No - ENDOCRINE/METABOLIC Hx Endocrine Disorders: No - MUSCULOSKELETAL/RHEUMATOLOGICAL Hx Falls: No - GENITOURINARY/GYNECOLOGICAL Hx Genitourinary Disorders: No - PSYCHIATRIC Hx Psychophysiologic Disorder: No Hx Substance Use: No - SURGICAL HISTORY Hx Appendectomy: Yes Hx Hysterectomy: Yes - ANESTHESIA Hx Anesthesia: Yes Meds Allergies/Adverse Reactions: Allergies Allergy/AdvReac Type Severity Reaction Status Date / Time No Known Allergies Allergy Verified 11/11/17 20:00 Physical Exam - Constitutional Appears: No Acute Distress - Head Exam Head Exam: ATRAUMATIC, NORMOCEPHALIC - Eye Exam Eye Exam: EOMI, PERRL - ENT Exam ENT Exam: Mucous Membranes Moist - Respiratory Exam Respiratory Exam: Clear to Auscultation Bilateral, NORMAL BREATHING PATTERN. absent: Accessory Muscle Use, Rales, Rhonchi, Wheezes, Respiratory Distress - Cardiovascular Exam Cardiovascular Exam: REGULAR RHYTHM, +S1, +S2 - GI/Abdominal Exam GI & Abdominal Exam: Normal Bowel Sounds, Soft. absent: Tenderness - Extremities Exam Extremities exam: Negative for: pedal edema - Neurological Exam Neurological exam: Alert, CN II-XII Intact, Oriented x3 - Psychiatric Exam Psychiatric exam: Normal Affect, Normal Mood - Skin Skin Exam: Dry, Warm Results - Vital Signs Recent Vital Signs: Last Vital Signs Temp Pulse 109 H 11/11/17 22:12 Resp 18 11/11/17 22:12 BP 110/60 11/11/17 22:12 Pulse Ox 96 11/11/17 22:12 - Labs Result Diagrams: 11/11/17 20:37 11/11/17 20:37 Assessment & Plan - Assessment and Plan (Free Text) Assessment: This is an 82 year old female with PMHx of Asthma and hypertension who presented for shortness of breath. Patient has improved after given nebulizer treatments and a dose of prednisone. Plan: 1. Asthma Exacerbation -No longer short of breath or wheezing after 3 nebulizer treatments and prednisone in the ED -Xopenex Q6H ANCA -Xopenex Q4H prn -was given Prednisone in the ED. Will hold off on further steroids for now. 2. History of HTN -restarted home Norvasc Discussed with Dr. Delmy Mccrary PGY-1 <Caty Brock - Last Filed: 11/12/17 05:57> Results - Vital Signs Recent Vital Signs: Last Vital Signs Temp 98.0 F 11/11/17 23:00 Pulse 115 H 11/12/17 02:00 Resp 18 11/11/17 23:14 BP 112/62 11/11/17 23:00 Pulse Ox 96 11/11/17 23:00 - Labs Result Diagrams: 11/11/17 20:37 11/11/17 20:37 Attending/Attestation - Attestation I have personally seen and examined this patient.: Yes I have fully participated in the care of the patient.: Yes I have reviewed all pertinent clinical information: Yes Notes (Text): 11/12/17 05:55 Patient was seen when she was in bed # 8 in the ER. Agree with history, physical examination, assessment and plan.
[2017-11-12] MEDS: Levalbuterol 1.25 MG/3 ML Inhal Soln UD IH SCH ×4 (04:20→12:52)
[2017-11-12] MEDS ORDERED: Pantoprazole 40 mg EC Tab PO SCH (06:00)
[2017-11-12 06:26] LABS: BASO # 0.01 K/mm3 (0.0-2.0); BASO % 0.1 % (0.0-3.0); GRAN # 5.78 (1.4-6.5); GRAN % 86.4 % (50.0-68.0); HEMOGLOBIN 12.2 g/dL (12.0-16.0); LYMPH # 0.8 (1.2-3.4); LYMPH % 11.4 % (22.0-35.0); MEAN CELL VOLUME 95.5 fl (80.0-105.0); MEAN CORPUSCULAR HEMOGLOBIN 30.4 pg (25.0-35.0); MEAN CORPUSCULAR HGB CONC 31.9 g/dl (31.0-37.0); MEAN PLATELET VOLUME 9.5 fl (7.0-11.0); MONO # 0.1 (0.1-0.6); MONO % 2.1 % (1.0-6.0); RBC 4.01 10^6/uL (3.5-6.1); RED CELL DISTRIBUTION WIDTH 13.3 % (11.5-14.5); WHITE BLOOD COUNT 6.7 10^3/ul (4.5-11.0)
[2017-11-12 07:36] LABS: ALB/GLOB RATIO 1.3 (1.1-1.8); ALBUMIN 4.1 g/dL (3.0-4.8); ALT/SGPT 36 U/L (7-56); AST/SGOT 37 U/L (14-36); BLOOD UREA NITROGEN 11 mg/dL (7-21); CALCIUM 9.3 mg/dL (8.4-10.5); GFR AFRICAN-AMERICAN > 60; GFR NON-AFRICAN AMERICAN > 60
[2017-11-12 08:20] VITALS: BP 125/69; PULSE 98; RESP 20; TEMP 97.6; O2SAT 94
--- NOTE | 2017-11-12 10:57 | RAD ---
HISTORY: shortness of breath COMPARISON: 09/12/2017 FINDINGS: LUNGS: No active pulmonary disease. PLEURA: No significant pleural effusion identified, no pneumothorax apparent. CARDIOVASCULAR: Normal. OSSEOUS STRUCTURES: No significant abnormalities. VISUALIZED UPPER ABDOMEN: Normal. OTHER FINDINGS: None. IMPRESSION: No active disease.
--- NOTE | 2017-11-12 12:19 | CP.PCM.DIS ---
<Kai Swanson - Last Filed: 11/12/17 14:48> Provider - Provider Date of Admission: 11/11/17 21:40 Attending physician: Dayna Todd MD Primary care physician: Rafat Mayorga MD Time Spent in preparation of Discharge (in minutes): 50 Hospital Course - Lab Results Lab Results: Most Recent Lab Values WBC 6.7 10^3/ul (4.5-11.0) D 11/12/17 05:30 RBC 4.01 10^6/uL (3.5-6.1) 11/12/17 05:30 Hgb 12.2 g/dL (12.0-16.0) 11/12/17 05:30 Hct 38.3 % (36.0-48.0) 11/12/17 05:30 MCV 95.5 fl (80.0-105.0) 11/12/17 05:30 MCH 30.4 pg (25.0-35.0) 11/12/17 05:30 MCHC 31.9 g/dl (31.0-37.0) 11/12/17 05:30 RDW 13.3 % (11.5-14.5) 11/12/17 05:30 Plt Count 287 10^3/uL (120.0-450.0) 11/12/17 05:30 MPV 9.5 fl (7.0-11.0) 11/12/17 05:30 Gran % 86.4 % (50.0-68.0) H 11/12/17 05:30 Lymph % (Auto) 11.4 % (22.0-35.0) L 11/12/17 05:30 Bailey % (Auto) 2.1 % (1.0-6.0) 11/12/17 05:30 Eos % (Auto) 0.0 % (1.5-5.0) L 11/12/17 05:30 Baso % (Auto) 0.1 % (0.0-3.0) 11/12/17 05:30 Gran # 5.78 (1.4-6.5) 11/12/17 05:30 Lymph # (Auto) 0.8 (1.2-3.4) L 11/12/17 05:30 Bailey # (Auto) 0.1 (0.1-0.6) 11/12/17 05:30 Eos # (Auto) 0.0 (0.0-0.7) 11/12/17 05:30 Baso # (Auto) 0.01 K/mm3 (0.0-2.0) 11/12/17 05:30 Sodium 144 mmol/L (132-148) 11/12/17 05:30 Potassium 4.0 mmol/L (3.6-5.0) 11/12/17 05:30 Chloride 108 mmol/L (98-107) H 11/12/17 05:30 Carbon Dioxide 24 mmol/L (21-33) 11/12/17 05:30 Anion Gap 16 (10-20) 11/12/17 05:30 BUN 11 mg/dL (7-21) 11/12/17 05:30 Creatinine 0.6 mg/dl (0.7-1.2) L 11/12/17 05:30 Est GFR ( Amer) > 60 11/12/17 05:30 Est GFR (Non-Af Amer) > 60 11/12/17 05:30 Random Glucose 165 mg/dL (70-110) H 11/12/17 05:30 Calcium 9.3 mg/dL (8.4-10.5) 11/12/17 05:30 Phosphorus 3.5 mg/dL (2.5-4.5) 11/12/17 05:30 Magnesium 1.9 mg/dL (1.7-2.2) 11/12/17 05:30 Total Bilirubin 0.5 mg/dL (0.2-1.3) 11/12/17 05:30 AST 37 U/L (14-36) H D 11/12/17 05:30 ALT 36 U/L (7-56) 11/12/17 05:30 Alkaline Phosphatase 72 U/L (38-126) 11/12/17 05:30 Troponin I 0.07 ng/mL D 11/11/17 20:37 NT-Pro-B Natriuret Pep 69.3 pg/mL (0-450) 11/11/17 20:37 Total Protein 7.3 g/dL (5.8-8.3) 11/12/17 05:30 Albumin 4.1 g/dL (3.0-4.8) 11/12/17 05:30 Globulin 3.2 gm/dL 11/12/17 05:30 Albumin/Globulin Ratio 1.3 (1.1-1.8) 11/12/17 05:30 - Hospital Course Hospital Course: 82 year old female with PMHx of Asthma and hypertension who presented for shortness of breath. This began one day prior to admission and has not improved despite inhaler and nebulizer treatments after 2 hours. Patient states that she was also coughing and bringing up white sputum. Patient also admitted to [facility]. Patient denies fever, chills, chest pain, abdominal pain, dysuria. Patient denies any recent travel or sick contacts. Patient has never been intubated before. To the patient's knowledge, this is only her second asthma exacerbation this year. She normally takes her rescue inhaler very infrequently about once a month. During hospital course, patient received duo-nebulizer treatments q4H. Symptoms resolved with these treatments. during examination walked patient around halls, and did not have shortness of breath or chest pain. O2 saturation at that time was 98%. Patient is stable and cleared for discharge on an inhaled corticosteroid, PO steroid for 4 days, Abx for 3 days, and continue rescue inhaler as needed. Recommend: following up with Dr. Bain (PMD) for further evaluation of medication status. Discharge Exam - Head Exam Head Exam: ATRAUMATIC, NORMOCEPHALIC - Eye Exam Eye Exam: EOMI. absent: Scleral icterus Pupil Exam: NORMAL ACCOMODATION, PERRL - ENT Exam ENT Exam: Mucous Membranes Moist - Respiratory Exam Respiratory Exam: NORMAL BREATHING PATTERN. absent: Accessory Muscle Use, Chest Wall Tenderness, Respiratory Distress - Cardiovascular Exam Cardiovascular Exam: REGULAR RHYTHM, +S1, +S2. absent: Bradycardia, Tachycardia , Clicks, Gallop - GI/Abdominal Exam GI & Abdominal Exam: Normal Bowel Sounds, Soft. absent: Distended, Firm, Guarding, Rigid, Tenderness - Extremities Exam Extremities exam: normal inspection - Neurological Exam Neurological exam: Alert, Oriented x3 - Psychiatric Exam Psychiatric exam: Normal Affect - Skin Skin Exam: Intact, Normal Color, Warm Discharge Plan - Discharge Medications Prescriptions: Azithromycin 500 mg PO DAILY 3 Days tablet Budesonide [Pulmicort Respules] 1 mg IH BID 30 Days ml predniSONE [Prednisone] 20 mg PO DAILY 4 Days tab - Follow Up Plan Condition: FAIR Disposition: HOME/ ROUTINE Instructions: Asthma (DC), Asthma (GEN) Referrals: Rafat Mayorga MD [Primary Care Provider] - <Smiley Cardona - Last Filed: 11/12/17 16:56> Provider - Provider Date of Admission: 11/11/17 21:40 Attending physician: Dayna Todd MD Primary care physician: Rafat Mayorga MD Time Spent in preparation of Discharge (in minutes): 35 Hospital Course - Lab Results Lab Results: Most Recent Lab Values WBC 6.7 10^3/ul (4.5-11.0) D 11/12/17 05:30 RBC 4.01 10^6/uL (3.5-6.1) 11/12/17 05:30 Hgb 12.2 g/dL (12.0-16.0) 11/12/17 05:30 Hct 38.3 % (36.0-48.0) 11/12/17 05:30 MCV 95.5 fl (80.0-105.0) 11/12/17 05:30 MCH 30.4 pg (25.0-35.0) 11/12/17 05:30 MCHC 31.9 g/dl (31.0-37.0) 11/12/17 05:30 RDW 13.3 % (11.5-14.5) 11/12/17 05:30 Plt Count 287 10^3/uL (120.0-450.0) 11/12/17 05:30 MPV 9.5 fl (7.0-11.0) 11/12/17 05:30 Gran % 86.4 % (50.0-68.0) H 11/12/17 05:30 Lymph % (Auto) 11.4 % (22.0-35.0) L 11/12/17 05:30 Bailey % (Auto) 2.1 % (1.0-6.0) 11/12/17 05:30 Eos % (Auto) 0.0 % (1.5-5.0) L 11/12/17 05:30 Baso % (Auto) 0.1 % (0.0-3.0) 11/12/17 05:30 Gran # 5.78 (1.4-6.5) 11/12/17 05:30 Lymph # (Auto) 0.8 (1.2-3.4) L 11/12/17 05:30 Bailey # (Auto) 0.1 (0.1-0.6) 11/12/17 05:30 Eos # (Auto) 0.0 (0.0-0.7) 11/12/17 05:30 Baso # (Auto) 0.01 K/mm3 (0.0-2.0) 11/12/17 05:30 Sodium 144 mmol/L (132-148) 11/12/17 05:30 Potassium 4.0 mmol/L (3.6-5.0) 11/12/17 05:30 Chloride 108 mmol/L (98-107) H 11/12/17 05:30 Carbon Dioxide 24 mmol/L (21-33) 11/12/17 05:30 Anion Gap 16 (10-20) 11/12/17 05:30 BUN 11 mg/dL (7-21) 11/12/17 05:30 Creatinine 0.6 mg/dl (0.7-1.2) L 11/12/17 05:30 Est GFR ( Amer) > 60 11/12/17 05:30 Est GFR (Non-Af Amer) > 60 11/12/17 05:30 Random Glucose 165 mg/dL (70-110) H 11/12/17 05:30 Calcium 9.3 mg/dL (8.4-10.5) 11/12/17 05:30 Phosphorus 3.5 mg/dL (2.5-4.5) 11/12/17 05:30 Magnesium 1.9 mg/dL (1.7-2.2) 11/12/17 05:30 Total Bilirubin 0.5 mg/dL (0.2-1.3) 11/12/17 05:30 AST 37 U/L (14-36) H D 11/12/17 05:30 ALT 36 U/L (7-56) 11/12/17 05:30 Alkaline Phosphatase 72 U/L (38-126) 11/12/17 05:30 Troponin I 0.07 ng/mL D 11/11/17 20:37 NT-Pro-B Natriuret Pep 69.3 pg/mL (0-450) 11/11/17 20:37 Total Protein 7.3 g/dL (5.8-8.3) 11/12/17 05:30 Albumin 4.1 g/dL (3.0-4.8) 11/12/17 05:30 Globulin 3.2 gm/dL 11/12/17 05:30 Albumin/Globulin Ratio 1.3 (1.1-1.8) 11/12/17 05:30 Attending/Attestation - Attestation I have personally seen and examined this patient.: Yes I have fully participated in the care of the patient.: Yes I have reviewed all pertinent clinical information, including history, physical exam and plan: Yes Notes (Text): 11/12/17 16:52 Medical record note made by the resident after discussion with my direction and input after the patient was personally seen and examined by me. I have reviewed the chart and agree that the record accurately reflects by personal performance of the history, physical exam, data review, and medical decision-making, in the course for the patient. I have also personally directed the plan of care. 82 F was admitted with COPD exacerbation, has responded well to Neb/Steroid. Cough and dyspnea has improved.She is on room air and is ambulatory. She will be discharged home on total 5 days course of Prednisone 40 mg po daily , albuterol inhaler and steroid inhaler. She will follow up with PCP Management plan was discussed in detail with patient. Education was provided.
--- NOTE | 2017-11-12 14:11 | CARD ---
APPROVED REPORT EKG Measurement Heart [id number] <Conclusion> Sinus tachycardia Possible Left atrial enlargement Left axis deviation Abnormal ECG
== END 2017-11-12 15:38 | disposition home or self-care (01) ==
LOC: ED 19:30 → ERH 21:40 → 3RSO 23:01
PROVIDERS: ADMIT Internal Medicine; ATTEND Internal Medicine
DX: J45.901 Unspecified asthma with (acute) exacerbation (principal); J44.1 Chronic obstructive pulmonary disease with (acute) exacerbation; I10 Essential (primary) hypertension; Z79.82 Long term (current) use of aspirin; Z90.49 Acquired absence of other specified parts of digestive tract; Z90.710 Acquired absence of both cervix and uterus; R40.2412 Glasgow coma scale score 13-15, at arrival to emergency department
CPT/HCPCS: 36415; 71045; 80053; 83735; 83880; 84100; 84484; 85025; 93005; 94640; 99285; G0378